=== PATIENT | female | born 1950 | race Caucasian/White ===

== ENCOUNTER 2018-06-13 10:56 | Inpatient (IN) ==
[2018-06-13] MEDS ORDERED: CLINDAMYCIN 600 MG/NS 600 MG/50 ML IVPB IV ONE (12:02)
[2018-06-13 12:21] LABS: BASO# 0.02 X1000 (0.0-0.2); BASO% 0.2 % (0.0-0.8); EOS# 0.09 X1000 (0.0-0.7); EOS% 0.9 % (0.0-10.0); HEMATOCRIT 43.1 % (37.0-47.0); HEMOGLOBIN 14.2 g/dL (12.0-16.0); IMM GRAN# 0.02 X1000 (0.0-0.04); IMM GRAN% 0.2 % (0.0-0.5); LYMPH# 1.51 X1000 (1.2-3.4); LYMPH% 14.8 % (20.5-51.1); MCH 30.1 PG (27-31); MCHC 32.9 g/dL (33-37); MCV 91.5 FL (81-99); MONO# 0.61 X1000 (0.11-0.59); MPV 11.3 FL (7.4-10.4); NEUT# 7.92 X1000 (1.4-6.5); NEUT% 77.9 % (42.2-75.2); PLT 187 X1000 (130-400); RBC 4.71 XMIL (4.2-5.4); RDW 14.1 % (11.5-14.5); WBC 10.17 X1000 (4.8-10.8)
[2018-06-13] MEDS ORDERED: CLINDAMYCIN 600 MG/D5W 600 MG/50 ML IVPB ONE (12:26)
[2018-06-13] MEDS ORDERED: CLINDAMYCIN 600 MG/D5W 600 MG/50 ML IVPB IV ONE (12:36)
[2018-06-13 12:42] LABS: AGAP 10; ALBUMIN 4.1 g/dL (3.5-5.0); ALKALINE PHOSPHATASE 55 U/L (32-104); BUN 12 mg/dL (8-22); CALCIUM 9.6 mg/dL (8.8-10.2); CHLORIDE 100 mmol/L (98-107); COSMO 280; CREATININE 0.4 mg/dL (0.5-0.9); ESTIMATED GFR > 60; GLUCOSE 118 mg/dL (70-104); GOT 22 U/L (10-30); GPT 27 U/L (10-36); POTASSIUM 4.1 mmol/L (3.5-5.1); SODIUM 140 mmol/L (136-145); TCO2 30 mmol/L (25-35); TOTAL PROTEIN 7.3 g/dL (6.3-8.3)
--- NOTE | 2018-06-13 13:16 | PROVIDER DOCUMENTATION ---
This chart was entered by Fifi Espniosa Scribe, acting as scribe for Magdaleno Hernandez PA. HPI-Animal/Snake Bite Injury - General Chief Complaint: Animal Bite Stated Complaint: DOG BITE / INFECTED Time Seen by Provider: 06/13/18 11:46 Patient arrived via EMS?: No Source: patient Allergies/Adverse Reactions: Patient Allergies Allergy/AdvReac Type Severity Reaction Status Date / Time enalaprilat [From Vasotec] AdvReac SWELLING Verified 06/13/18 11:13 - History of Present Illness-Bite Injuries Nature of Presenting Problem: 67 y/o female presents to ED with dog bite to L hand onset 2 days ago. Pt reports her dog bit her while they were at the vet. Pt states she was seen at [facility] and is on augmentin. Pt denies fever. Pt reports increased pain, redness, and swelling. Pt is alert and oriented. Onset/Duration: 2 days ago Timing: reports: still present Locality of Occurance: Home Severity: moderate Quality: painful Loss of Consciousness: no loss of consciousness Remembers:: injury, coming to hospital Similar Symptoms Previously?: No Recently seen or treated by another doctor?: No - Animal Bite Bite Injury Location: reports: hands (L) Animal:: reports: dog Appearance of Animal: appeared well Animal's Immunization Status: UTD Observation/Capture: animal is known/can be observed 10 days (owned by pt) Context of Attack: reports: other (at vet) Severity of Bite Injury: bitten Review of Systems - Adult - REVIEW OF SYSTEMS - ADULT Constitutional: denies: chills, fever Eyes: reports: no symptoms reported Ears, Nose, Mouth & Throat: reports: no symptoms reported Cardiovascular: denies: chest pain, palpitations Respiratory: denies: cough, shortness of breath Gastrointestinal: denies: abdominal pain, diarrhea, nausea, vomiting Genitourinary: reports: no symptoms reported Musculoskeletal: reports: other (L hand pain/swelling/red due to dog bite). denies: back pain, joint pain Integumentary: reports: other (L hand pain/swelling/red due to dog bite). denies: hives Neurological: denies: dizziness/vertigo, seizure Psychiatric: reports: no symptoms reported Endocrine: reports: no symptoms reported Hematologic/Lymphatic: reports: no symptoms reported Allergic/Immunologic: reports: no symptoms reported All Other Systems: Reviewed and Negative Past History - Adult - PAST MEDICAL HISTORY-ADULT Review of Records: reports: Old Records Reviewed, Nursing Assessment Review, Medications Reviewed Major Childhood Illnesses: reports: denies history Respiratory: reports: COPD Neurological: reports: CVA - PRIOR SURGERIES/PROCEDURES Surgical/Procedure History: reports: hysterectomy - IMMUNIZATION STATUS Childhood Immunizations: See Nurse Assessment Flu Vaccine: See Nurse Assessment - FAMILY HISTORY Family History: reviewed, not pertinent - SOCIAL HISTORY Smoking: quit greater than 1 year Substance Use: none/never Alcohol Use Frequency: never Living Situation: family Physical Exam-General - PHYSICAL EXAM-ADULT Initial Vital Signs Reviewed: Yes - CONSTITUTIONAL General Appearance: appears well, alert, no apparent distress - EYES Eyes: PERRL/EOMI, pink conjunctivae - HEAD, EARS, NOSE, MOUTH & THROAT HENMT: normocephalic/atraumatic, moist mucous membranes, normal ENT inspection - NECK Neck: non-tender, full range of motion - RESPIRATORY Respiratory: chest non-tender, lungs clear, normal breath sounds - CARDIOVASCULAR Cardiovascular: normal peripheral pulses, regular rate, rhythm - GASTROINTESTINAL (ABDOMEN) Abdominal Exam: normal bowel sounds, non tender, soft - MUSCULOSKELETAL Back Exam: normal inspection, no CVA tenderness Extremity: normal range of motion, normal gait, erythema (streaking; L hand bitten), swelling (L hand bitten), tenderness (L hand bitten), other (L hand bitten) - SKIN Integumentary: normal color, warm/dry, erythema (streaking; L hand bitten), swelling (L hand bitten), tenderness (L hand bitten) - NEUROLOGIC Neurologic: grossly normal - PSYCHIATRIC Psych/Mental Status: normal mood/affect, normal thought content, normal thought process Progress - PLAN OF CARE/RESULTS Progress/Plan/Lab Results: Vital Signs - 8 hr 06/13/18 11:09 Temperature 98.2 F Pulse Rate 95 H Respiratory Rate 18 Blood Pressure 131/72 O2 Sat by Pulse Oximetry 93 L Laboratory Results - last 24 hr 06/13/18 06/13/18 06/13/18 12:10 12:10 12:10 WBC 10.17 RBC 4.71 Hgb 14.2 Hct 43.1 MCV 91.5 MCH 30.1 MCHC 32.9 L RDW Std Deviation 14.1 Plt Count 187 MPV 11.3 H Immature Gran % (Auto) 0.2 Neut % (Auto) 77.9 H Lymph % (Auto) 14.8 L Mclean % (Auto) 6.0 Eos % (Auto) 0.9 Baso % (Auto) 0.2 Immature Gran # (Auto) 0.02 Neut # (Auto) 7.92 H Lymph # (Auto) 1.51 Mclean # (Auto) 0.61 H Eos # (Auto) 0.09 Baso # (Auto) 0.02 Sodium 140 Potassium 4.1 Chloride 100 Carbon Dioxide 30 Anion Gap 10 BUN 12 Creatinine 0.4 L Estimated GFR/1.73 m2 > 60 BUN/Creatinine Ratio 30 Glucose 118 H Calculated Osmolality 280 Calcium 9.6 Total Bilirubin 1.00 AST 22 ALT 27 Alkaline Phosphatase 55 Total Protein 7.3 Albumin 4.1 Globulin 3.0 Albumin/Globulin Ratio 1.0 Plasma Lactate 0.8 Orders Category Date Time Status Saline Loc NOW Care 06/13/18 11:56 Active BLOOD CULTURE [BLDCUL] Stat Lab 06/13/18 12:13 Ordered CBC WITH DIFF [HEME] Stat Lab 06/13/18 12:10 Completed COMPREHENSIVE METABOLIC PANEL [CHEM] Stat Lab 06/13/18 12:10 Completed LACTATE, PLASMA [CHEM] Stat Lab 06/13/18 12:10 Completed Clindamycin 600 mg/D5w Med 06/13/18 12:26 Discontinued 600 mg in 50 ml .ROUTE As Directed Clindamycin 600 mg/D5w Med 06/13/18 12:36 Active 600 mg in 50 ml IV NOW Clindamycin 600 mg/Ns Med 06/13/18 12:02 Discontinued 600 mg in 50 ml IV NOW There is some purulent drainage from one of the bites and I am concerned for abscess/tenosynovitis. Will discuss c orthopedics. Result Diagrams: 06/13/18 12:10 06/13/18 12:10 - CONSULTS/PCP/HOSPITALIST Notification #1 *Consult/PCP/Hospitalist*: Dr. Taylor Time Discussed: 13:15 Consult Disposition: Admit (admit to hospitalist and consult ortho) #2 Consult: Dr. Call Time Discussed: 13:15 Consult Disposition: Admit (will see pt and tx to [facility] [place]) Departure - Departure Date of Disposition Decision: 01/19/19 Time of Disposition Decision: 12:53 DIAGNOSIS: Dog bite of left hand including fingers with infection Qualifiers: Encounter type: initial encounter Qualified Code(s): S61.452A - Open bite of left hand, initial encounter; S61.259A - Open bite of unspecified finger without damage to nail, initial encounter; L08.9 - Local infection of the skin and subcutaneous tissue, unspecified; W54.0XXA - Bitten by dog, initial encounter Disposition: ADMITTED INPATIENT 09 Certified Medical Emergency: Emergent Condition: Good Referrals and Follow-Ups: Joan Jones MD [Primary Care Provider] - - Critical Care Note This patient required my direct & personal management of CC.: No Attestation - Physician/ MICKIE Attestation Patient care was provided by Advanced Practice Provider:: Yes Advanced Practice Provider:: Magdaleno Hernandez Advanced Practice Provider documentation review:: The Mid-level provider documentation, treatment plan and medical decision making was reviewed by the physician who agrees with all treatment and medical decision making by the MLP. The physician spent face to face time with patient:: No Advanced Practice Provider documentation review:: Supervising physician onsite and consulted in the evaluation and care of this patient. The physician did not have a face to face encounter with the patient. This chart was documented by the indicated scribe, (Fifi Espinosa Scribe) and accurately reflects the services I performed and decisions made by me, Magdaleno Hernandez PA, as attested by the provider's signature.
[2018-06-13] MEDS ORDERED: ANTIVERT PO PRN (16:46)
[2018-06-13] MEDS ORDERED: ESTAZOLAM 1 MG PO PRN (16:46)
[2018-06-13] MEDS ORDERED: PATIENT'S OWN MED PO PRN (16:46)
[2018-06-13] MEDS ORDERED: VENTOLIN HFA INH PRN (16:46)
[2018-06-13] MEDS ORDERED: TYLENOL PO PRN (16:46)
[2018-06-13] MEDS ORDERED: ZOFRAN IV PRN (16:46)
[2018-06-13] MEDS ORDERED: FISH OIL CONCENTRATE PO SCH ×2 (17:00→21:00)
[2018-06-13] MEDS: FISH OIL CONCENTRATE PO SCH (18:37)
[2018-06-13 19:48] LABS: URINE SOURCE CLEAN CATCH
[2018-06-13 19:50] LABS: BILIRUBIN URINE NEGATIVE (NEGATIVE); BLOOD URINE NEGATIVE (NEGATIVE); COLOR ORANGE; GLUCOSE URINE NEGATIVE (NEGATIVE); KETONE URINE NEGATIVE (NEGATIVE); LEUKOCYTES URINE TRACE (NEGATIVE); NITRITE URINE NEGATIVE (NEGATIVE); PROTEIN URINE TRACE mg/dL (NEGATIVE); SP GRAVITY URINE 1.018; TURBIDITY URINE TURBID (CLEAR); UROBILINOGEN URINE NORMAL (NORMAL)
[2018-06-13 19:51] LABS: UR EPITHELIAL CELLS <10 /HPF (<10); URINE BACTERIA NEGATIVE /HPF; URINE RBC <10 /HPF (<10); URINE WBC <10 /HPF (<10)
--- NOTE | 2018-06-13 19:53 | HISTORY AND PHYSICAL ---
PRIMARY CARE PHYSICIAN: Dr. Jones. CHIEF COMPLAINT: Of a dog bite to her left hand that happened 2 days ago while she was at the vet with her dog. HISTORY OF PRESENTING ILLNESS: This is a 67-year-old female who presents to [facility] ER with complaints of having a dog bite to her left hand that happened 2 days ago on while she was at the vet with her dog. States her dog got nervous and scared and bit her but her shots are all up-to-date. She went to an urgent care center after the episode happened and was placed on Augmentin but states that the redness and swelling has increased so she came in for evaluation. It is noted on her left hand to the anterior portion to have 2 scabbed areas that appear to be the puncture wounds from the dog bite and also noted to be erythematous and edematous with red streaking in 1 line down the top of her forearm and then crosses over into the posterior part of her forearm closest to her elbow, we will maggie this area with skin markings so we can ensure that the streaking improves. Her workup in the emergency room was fairly unremarkable. Her white count was normal at 10.17 but ER physician spoke with orthopedic on-call who wants her to be admitted at the [facility] so she will be admitted for further evaluation and treatment. PAST MEDICAL HISTORY: COPD and CVA. PAST SURGICAL HISTORY: Hysterectomy. FAMILY HISTORY: Reviewed and noncontributory. SOCIAL HISTORY: She currently lives with family. Denies any tobacco, alcohol or illicit drug use. ALLERGIES: To enalapril. HOME MEDICATIONS: She takes ProAir 2 to 4 puffs q.4-6 hours p.r.n., Augmentin 875/125 one p.o. b.i.d. will be held, aspirin 81 mg p.o. daily, Biotene 5000 mcg sublingually daily, calcium carbonate with vitamin D3 p.o. b.i.d., vitamin B12 5000 mcg p.o. daily, Prosom 1 mg p.o. at bedtime p.r.n., amlodipine 10 mg 1 p.o. daily, flaxseed oil 1000 mg p.o. daily, folic acid 0.4 mg p.o. daily, gabapentin 300 mg p.o. b.i.d., glucosamine chondroitin 1 tablet p.o. b.i.d., hydrochlorothiazide 37.5 mg p.o. daily, irbesartan 300 mg p.o. daily, Culturelle 1 tablet p.o. b.i.d., magnesium 250 mg p.o. daily, Antivert 25 mg p.o. daily p.r.n., melatonin 5 mg p.o. at bedtime, meloxicam 7.5 mg p.o. daily, methscopolamine bromide 1 tablet p.o. daily p.r.n., multivitamin p.o. daily, Mupirocin 1 application topically b.i.d. to affected area, fish oil 1000 mg p.o. 4 times daily and Ambien 5 mg 1 p.o. at bedtime. LABORATORY DATA: Showed a white blood cell count of 10.17, hemoglobin 14.2, hematocrit 43.1, platelets 187,000, sodium 140, potassium 4.1, chloride 100, CO2 30, BUN of 12, creatinine 0.4, glucose 118, plasma lactate of 0.8. REVIEW OF SYSTEMS: She denied any fever, chills, blurred vision, dizziness, chest pain, coughing, shortness of breath. She was positive for pain to her left hand where the dog bite occurred. It is also noted to be erythematous and edematous and warm to touch. She denied any abdominal pain, constipation, diarrhea, burning or hurting with urination. PHYSICAL EXAMINATION: On arrival she had a temperature of 98.2 degrees, pulse of 95, respirations 18 , blood pressure 131/72 saturating 93% on room air. GENERAL: This is a 67-year-old female who is sitting in the chair answers questions appropriately. HEENT: Normocephalic, atraumatic. Normal ENT inspection. Oropharynx and nares are clear. Pupils are equal, round, and reactive to light and accommodation. Extraocular movements are intact. NECK: Normal inspection, normal range of motion. LUNGS: Clear to auscultation bilaterally with equal lung expansion and chest wall movement. HEART: With regular rate and rhythm. No murmurs, rubs, or gallops. ABDOMEN: Soft, nontender, nondistended. Bowel sounds are present x4 quadrants. EXTREMITIES: Patient is noted to her left hand to have 2 puncture wounds to the anterior portion of her left hand with erythema, edema, warmth to touch with a red streak on the anterior portion that crosses over to the posterior portion of her forearm. NEUROLOGICAL: The cranial nerves 2-12 appear grossly intact. ASSESSMENT: 1. Left hand cellulitis secondary to dog bite with failed outpatient treatment. 2. History of chronic obstructive pulmonary disease. PLAN: She is being admitted to the medical unit at [facility]. Placed on healthy heart diet, will consult Orthopedics, place on clindamycin 600 mg IV q.8, she did receive her 1st dose in the emergency room. We will continue her home medications as previously identified, recheck a CBC, BMP in the a.m. We will have nursing to do skin markings for the erythematous area so that we can monitor that and further orders after seen by attending and by instructional consultant. Dictated by WICHO Camejo for Kamila Henson MD cc: MD Kamila Fenton MD [facility]
[2018-06-13] MEDS: BACTROBAN OINTMENT TOP SCH (20:52)
[2018-06-13] MEDS: CLINDAMYCIN 600 MG/D5W 600 MG/50 ML IVPB IV SCH (20:53)
[2018-06-13] MEDS: GLUCOSAMINE 500 MG/CHONDROITIN 400 MG PO SCH (21:12)
[2018-06-13] MEDS: CALTRATE 600 + D PO SCH (21:12)
[2018-06-13] MEDS: NEURONTIN PO SCH (21:12)
[2018-06-13] MEDS: MELATONIN PO SCH (21:12)
[2018-06-13] MEDS: CULTURELLE PO SCH (21:12)
[2018-06-13] MEDS: AMBIEN PO PRN (21:58)
--- NOTE | 2018-06-13 23:37 | HISTORY AND PHYSICAL ---
ADDENDUM: This is a 67-year-old lady who was seen by me face to face. She had a dog bite to her left hand 2 days ago and started having redness and swelling of her left hand this morning. There was a concern of abscess and compartment syndrome, because of which Orthopedics was consulted who have agreed to take the patient at [facility] [place] and do the surgery. The patient will therefore be transferred to [facility] [place] and admitted over there under the hospitalist care with Orthopedics on consult. Dr. Taylor from the orthopedic service has already accepted the patient. She has received clindamycin IV here at the emergency room that will be continued over there at [facility] [place] as well. The nurse practitioner , Sharona Perez, has seen the patient, and I fully agree with her assessment and plan. cc: Kamila Henson MD MTDD
[2018-06-14] MEDS: CLINDAMYCIN 600 MG/D5W 600 MG/50 ML IVPB IV SCH ×3 (03:42→19:45)
[2018-06-14 06:21] LABS: BASO# 0.02 X1000 (0.0-0.2); BASO% 0.3 % (0.0-0.8); EOS# 0.11 X1000 (0.0-0.7); EOS% 1.6 % (0.0-10.0); HEMATOCRIT 42.5 % (37.0-47.0); HEMOGLOBIN 13.7 g/dL (12.0-16.0); LYMPH# 1.45 X1000 (1.2-3.4); LYMPH% 21.6 % (20.5-51.1); MCH 29.8 PG (27-31); MCHC 32.2 g/dL (33-37); MCV 92.4 FL (81-99); MONO# 0.48 X1000 (0.11-0.59); MONO% 7.1 % (1.7-9.3); MPV 11.2 FL (7.4-10.4); NEUT# 4.66 X1000 (1.4-6.5); NEUT% 69.4 % (42.2-75.2); PLT 184 X1000 (130-400); RDW 14.1 % (11.5-14.5); WBC 6.72 X1000 (4.8-10.8)
[2018-06-14 06:45] LABS: AGAP 11; BUN 13 mg/dL (8-22); CALCIUM 9.4 mg/dL (8.8-10.2); CHLORIDE 102 mmol/L (98-107); COSMO 282; CREATININE 0.5 mg/dL (0.5-0.9); ESTIMATED GFR > 60; GLUCOSE 113 mg/dL (70-104); POTASSIUM 3.9 mmol/L (3.5-5.1); SODIUM 141 mmol/L (136-145); TCO2 28 mmol/L (25-35)
[2018-06-14] MEDS: THERA M PLUS PO SCH ×2 (07:39→11:23)
[2018-06-14] MEDS: PLENDIL PO SCH ×2 (07:40→11:25)
[2018-06-14] MEDS: AVAPRO PO SCH ×2 (07:40→11:22)
[2018-06-14] MEDS: CULTURELLE PO SCH ×4 (07:40→21:52)
[2018-06-14] MEDS: HYDROCHLOROTHIAZIDE PO SCH ×2 (07:41→11:24)
[2018-06-14] MEDS: MAG-OX PO SCH ×2 (07:41→11:24)
[2018-06-14] MEDS: FISH OIL CONCENTRATE PO SCH ×2 (07:41→18:22)
[2018-06-14] MEDS: CALTRATE 600 + D PO SCH ×4 (07:41→21:52)
[2018-06-14] MEDS: ASPIRIN PO SCH ×2 (07:41→11:21)
[2018-06-14] MEDS: NEURONTIN PO SCH ×4 (07:41→21:51)
[2018-06-14] MEDS: GLUCOSAMINE 500 MG/CHONDROITIN 400 MG PO SCH ×4 (07:41→21:51)
[2018-06-14] MEDS: BIOTIN PO SCH ×2 (07:43→11:22)
[2018-06-14] MEDS: VITAMIN B-12 PO SCH ×2 (07:43→11:23)
[2018-06-14] MEDS: FOLIC ACID PO SCH ×2 (07:44→11:23)
[2018-06-14] MEDS: MOBIC PO SCH ×2 (07:44→11:24)
[2018-06-14] MEDS: PATIENT'S OWN MED PO SCH (07:48)
[2018-06-14] MEDS: BACTROBAN OINTMENT TOP SCH ×3 (07:49→21:51)
--- NOTE | 2018-06-14 10:31 | CONSULTATION ---
DATE OF CONSULTATION: 06/14/2018 CHIEF COMPLAINT: Dog bite, left hand. HISTORY OF PRESENT ILLNESS: This is a 67-year-old female, status post a dog bite from her own dog to the left hand roughly 2 to 3 days ago while the dog was at the vet office. She was initially placed on Augmentin, but continued to have worsening redness and cellulitis about the hand. She was evaluated by the hospitalist in the ER yesterday and admitted for IV antibiotics. Presently, she reports significant improvement after being on the IV antibiotics overnight. She reports decreasing pain, tenderness and discharge. She really denies any other complaints at the present time. PAST MEDICAL HISTORY: Significant for COPD and a CVA in the past. SURGICAL HISTORY: Status post hysterectomy. SOCIAL HISTORY: Really unremarkable. Resides with her family. She does not use any tobacco or significant alcohol intact. MEDICATIONS: As listed per her history and physical in intake chart. ALLERGIES: Enalapril. PHYSICAL EXAMINATION: Left hand: Shows 2 puncture wounds about the web space of the hand. There is minimal discharge to no discharge currently. There is some mild cellulitis. There is no fluctuance or palpable abscess. Specifically, there is no obvious abscess in the thenar space which I can detect or the carpal space or hypothenar space. She has good flexion-extension of all the flexor tendon sheaths, including the thumb, indicating no flexor tenosynovitis. There is no dorsal abscess. She has normal range of motion of the digits, wrist and elbow. LABORATORY: Her white count was essentially normal and she is afebrile. ASSESSMENT: Cellulitis from dog bite, left hand. PLAN: Patient appears to be responding to the IV clindamycin extremely well at this point in time. I do not see any surgical pathology or localized abscess which would require surgical drainage. I would recommend another day of IV clindamycin and follow up on cultures for guidance on selecting outpatient antibiotic tomorrow. We can certainly recheck her in the office in roughly 1 week. I do not see any evidence to suggest that she might require surgical drainage during this admission and we will be signing off. If things change or worsen, please do not hesitate to call us back, cc: Christopher Taylor MD
--- NOTE | 2018-06-14 13:13 | PROGRESS NOTE ---
DATE: 06/14/2018 SUBJECTIVE: The patient reports feeling fine. There is less reddening and pain in the affected hand. OBJECTIVE: Vital Signs: Temperature 98.1 degrees, heart rate 72, respiratory rate 12, blood pressure 95/58, O2 saturation 94% on room air. General Examination: This is a 67-year-old female lying in bed, in no acute distress. Cardiovascular: S1, S2 heard. No murmurs, gallops, or rubs. Regular rate and rhythm. Respiratory: Clear bilaterally to auscultation. No work of breathing or using accessory muscles. Abdomen: Soft. Nontender to palpation. Bowel sounds present. No organomegaly. Extremities: The patient had in the left hand 2 puncture wounds on anterior part of the left hand with erythema, edema, and warmth to touch, but apparently better in comparing to what was described in the admission note. Neurological: Patient is alert and oriented x3. Moves 4 extremities. LABORATORY DATA: Reviewed and everything is within normal limits. ASSESSMENT AND PLAN: 1. Left hand cellulitis secondary to dog bite with failed outpatient treatment. Orthopedics has evaluated this patient and they do think she will not need any surgical procedure and he recommends continuing with medical management only. We will continue with current antibiotics, in this case clindamycin. So, we are going to follow recommendations. I think if tomorrow she continues to improve, she can be discharged with oral medications. 2. History of chronic obstructive pulmonary disease. At this point, patient is not in any exacerbation. We will continue to monitor. cc: Arnulfo Ogden MD
[2018-06-14] MEDS: AMBIEN PO PRN (22:46)
[2018-06-14] MEDS: MELATONIN PO SCH (22:46)
[2018-06-15] MEDS: CLINDAMYCIN 600 MG/D5W 600 MG/50 ML IVPB IV SCH ×2 (03:55→13:12)
[2018-06-15] MEDS: MOBIC PO SCH (08:18)
[2018-06-15] MEDS: NEURONTIN PO SCH (08:18)
[2018-06-15] MEDS: BIOTIN PO SCH (08:19)
[2018-06-15] MEDS: ASPIRIN PO SCH (08:19)
[2018-06-15] MEDS: MAG-OX PO SCH (08:19)
[2018-06-15] MEDS: GLUCOSAMINE 500 MG/CHONDROITIN 400 MG PO SCH (08:19)
[2018-06-15] MEDS: PLENDIL PO SCH (08:19)
[2018-06-15] MEDS: CULTURELLE PO SCH (08:19)
[2018-06-15] MEDS: FISH OIL CONCENTRATE PO SCH (08:19)
[2018-06-15] MEDS: VITAMIN B-12 PO SCH (08:19)
[2018-06-15] MEDS: AVAPRO PO SCH (08:20)
[2018-06-15] MEDS: THERA M PLUS PO SCH (08:20)
[2018-06-15] MEDS: FOLIC ACID PO SCH (08:20)
[2018-06-15] MEDS: HYDROCHLOROTHIAZIDE PO SCH (08:20)
[2018-06-15] MEDS: CALTRATE 600 + D PO SCH (08:20)
[2018-06-15] MEDS: BACTROBAN OINTMENT TOP SCH (08:21)
[2018-06-15] MEDS: PATIENT'S OWN MED PO SCH (08:26)
[2018-06-15 12:13] VITALS: BP 108/52
--- NOTE | 2018-06-16 05:20 | DISCHARGE SUMMARY ---
ADMISSION DATE: 06/13/2018 DISCHARGE DATE: 06/15/2018 CONSULTATIONS: Dr. Taylor with orthopedics. PERTINENT PROCEDURES: None. DISCHARGE DIAGNOSES: 1. Left hand cellulitis secondary to a dog bite with failed outpatient treatment. She was evaluated by orthopedics. She has responded well to intravenous antibiotics. They recommend to continue with medical management and will be discharged home on oral medications. 2. History of chronic obstructive pulmonary disease without exacerbation. 3. Cerebrovascular accident history. HOSPITAL COURSE: Ms. Rowe is a 67-year-old , female who presented to the [facility] with complaints of having a dog bite to her left hand that happened 2 days prior to this admission. While she was at the vet with her dog, she states her dog got nervous and scared, bit her. All the dog's shots are all up-to-date. She went to the Urgent Care after the episode and was placed on Augmentin but states that the redness and swelling continued to increase so she came in for evaluation. She was noted to have, on her left hand to the anterior portion, have 2 scabbed areas that appeared to be puncture wounds, as well as noted to be erythematous and edematous with red streaking in one line down to the top of the forearm and then crosses over to the posterior portion of the forearm close to the elbow. The area was marked. Her workup in the ED was fairly unremarkable. Her white count was normal at 10. The ED physician spoke with the on-call orthopedist who recommended admission to [facility] so she could be further evaluated and treated. She was initiated on IV antibiotics, transferred over to [facility]. After orthopedic evaluation, they felt that she did not require any surgical intervention and recommended to continue with medical management. She did have improvement with IV antibiotics and will be discharged home today on oral medications. VITAL SIGNS: Temperature is 97.3 degrees, heart rate 64, respirations 16, blood pressure 108/52, O2 is 91% on room air. DISCHARGE DIET: Healthy heart. DISCHARGE MEDICATIONS: 1. Clindamycin 300 mg p.o. q.6 hours for 28 capsules. 2. Fish oil 1000 mg soft gel 1 each p.o. 4 times a day. 3. Mupirocin 1 application topical b.i.d. 4. Multivitamins 1 tablet p.o. daily. 5. Methscopolamine bromide 1 tablet p.o. daily p.r.n. 6. Magnesium 250 mg p.o. daily. 7. Culturelle 1 tablet p.o. b.i.d. 8. Hydrochlorothiazide 37.5 mg p.o. daily. 9. Avapro 300 mg p.o. daily. 10. Glucosamine and chondroitin 1 tablet p.o. b.i.d. 11. Gabapentin 300 mg p.o. b.i.d. 12. Folic acid 0.4 mg p.o. daily. 13. Flaxseed oil 1 tablet p.o. daily. 14. Prosom 1 mg p.o. at bedtime p.r.n. 15. Vitamin B12 500 mcg p.o. daily. 16. Calcium 600 plus vitamin D 1 tablet p.o. b.i.d. 17. Biotin 5000 mcg sublingual daily. 18. Aspirin 81 mg p.o. daily. 19. ProAir inhaler 2 to 4 puffs inhaled q.4 to q.6 hours p.r.n. 20. Ambien 5 mg tablet p.o. at bedtime p.r.n. 21. Plendil 10 mg p.o. daily. FOLLOWUP: Ms. Rowe is being discharged home on p.o. antibiotics. She is to follow up with her primary care provider, Joan Jones MD, in 1 week. She is to take all antibiotics as prescribed. She can return to the ED or call 911 for any worsening of symptoms. Dictated by WICHO Dietz for Arnulfo Ogden MD Addendum: Patient seen and examined by myself. Agree with WICHO note. It reflects my assessment and plan. Patient is being discharged from hospital and will be seen by her primary care doctor in a week. cc: MD Joan Valente MD John R. Riehl, MD MTDD
== END 2018-06-15 14:41 | disposition home or self-care (01) | DRG 603 ==
LOC: P.ED 10:56 → 4N 10:57
PROVIDERS: ATTEND Internal Medicine
CPT/HCPCS: 80048; 80053; 81001; 83605; 85025; 87040; 87088; 94640; 94761; 96365; 99284; A9270; S0077